=== PATIENT | female | born 1990 | race Caucasian/White ===

== ENCOUNTER 2017-12-09 17:00 | Emergency (ER) | payer OTHER ==
[~2017-12-09] VITALS: Ht 162.6 cm; Wt 97.5 kg
[2017-12-09 17:18] VITALS: BP 121/65
--- NOTE | 2017-12-09 17:38 | PHYS DOC ---
Past Medical History Past Medical History: No Pertinent History Past Surgical History: No Surgical History Alcohol Use: None Drug Use: None Adult General Chief Complaint Chief Complaint: SKIN PROBLEM HPI HPI 27-year-old female presents to ER for complaints of probable poison terry to left side of face, neck, and arm. Patient reports on Friday she was in the [employer] and has had poison terry in the past. Pt reports this morning had onset of rash. She denies any shortness of air, chest tightness or pain, wheezing, or throat pain/ pain. Patient denies any difficulty swallowing. Patient is currently with estimated due date 01/12/18 TM. Patient's LMP was March 2017. Patient reports she has felt movement throughout the day denying any abdominal pain, nausea or vomiting, or vaginal symptoms. Review of Systems Review of Systems Constitutional: Denies fever or chills [] Eyes: Denies change in visual acuity or eye pain. Patient reports eyelid swelling to left eye denies pain with eye movement HENT: Denies nasal congestion or sore throat/swelling or difficulty swallowing Respiratory: Denies cough or shortness of breath [] Cardiovascular: Denies chest pain or tightness GI: Denies abdominal pain, nausea, vomiting Musculoskeletal: Denies back/neck pain or joint pain [] Integument: Reports rash to left side of face, neck, and left upper extremity. Neurologic: Denies headache, focal weakness or sensory changes. Denies dizziness /lightheadedness All other systems were reviewed and found to be within normal limits, except as documented in this note. Current Medications Current Medications Current Medications Medications (Trade) Dose Ordered Sig/Eddie Start Time Stop Time Status Last Admin Dose Admin Famotidine (Pepcid) 40 mg 1X ONCE 12/09/17 18:00 12/09/17 18:01 DC 12/09/17 18:01 40 MG Allergies Allergies Allergies Coded Allergies Type Severity Reaction Last Updated Verified No Known Drug Allergies 10/21/14 No Physical Exam Physical Exam Constitutional: Well developed, well nourished, no acute distress, non-toxic appearance. Speaking in full sentences with no difficulty swallowing or pooling of secretions HENT: Normocephalic, atraumatic, bilateral ears normal, oropharynx moist-no pharyngeal or tonsillar swelling or erythema. Uvula midline with no swelling or erythema, no oral exudates, nose normal. [] Eyes: 3 mm PERRLA, EOMI-no pain with eye movement, conjunctiva normal, no discharge. [] Neck: Normal range of motion, no tenderness, supple, no gross adenopathy Cardiovascular:Heart rate regular rhythm, no murmur [] Lungs & Thorax: Bilateral breath sounds clear to auscultation. Respirations equal and nonlabored Abdomen: Bowel sounds normal, soft, no tenderness Skin: Warm, dry, Back: No tenderness, full ROM Extremities: No tenderness, no cyanosis, no clubbing, ROM intact, no edema. [] Neurologic: Alert and oriented X 3, normal motor function, normal sensory function, no focal deficits noted. [] Psychologic: Affect normal, judgement normal, mood normal. [] Current Patient Data Vital Signs Vital Signs Date Time Temp Pulse Resp B/P (MAP) Pulse Ox O2 Delivery O2 Flow Rate FiO2 12/09/17 17:18 97.9 98 16 121/65 (83) 97 Room Air 97.9 EKG EKG [] Radiology/Procedures Radiology/Procedures [] Course & Med Decision Making Course & Med Decision Making Pt has been in no visible distress while in ER with equal/nonlabored resp. On re -exam after dose of Pepcid PO pt has less lt eyelid swelling and continues to deny any SOA, throat swelling, chest tightness, difficulty swallowing, or abdominal pain. Patient is not wanting to remain in the ER for heart tones as she's had movement since onset of symptoms. 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 Education provided on s&s to return to ER for and discharge instructions were discussed. Dragon Disclaimer Dragon Disclaimer This electronic medical record was generated, in whole or in part, using a voice recognition dictation system. Departure Departure Impression: Primary Impression: Contact dermatitis Disposition: 01 HOME, SELF-CARE Condition: STABLE Referrals: NO PCP (PCP) Patient Instructions: Contact Dermatitis Additional Instructions: Discuss medications with your INVOICING MACHINE OPERATOR- you can take over the counter benedryl or famotidine for antihistamine as directed on container. Drink plenty of water. With any worsening symptoms, difficulty breathing, or concerns return to emergency department. MARIE ALLISON TRANSPLANTER Dec 09, 2017 17:38
[2017-12-09] MEDS ORDERED: FAMOTIDINE 20 MG TABLET. PO ONE (18:00)
== END 2017-12-09 18:19 | disposition home or self-care (01) ==
LOC: ER 17:00
DX: O26.893 Other specified pregnancy related conditions, third trimester (principal); L25.9 Unspecified contact dermatitis, unspecified cause; Z3A.00 Weeks of gestation of pregnancy not specified
CPT/HCPCS: 99282